=== PATIENT | female | born 1940 | race Caucasian/White ===

== ENCOUNTER → 2019-04-24 12:38 | Outpatient (CLI) | payer MEDICARE, SELFPAY ==
--- NOTE | ~2019-04-24 | XR_ITS ---
XR lumbar spine 2-3V DATE: 04/24/2019 13:29 INDICATION: Low back pain. TECHNIQUE: Standing AP, lateral and flexion and extension lateral and coned lateral lumbosacral views COMPARISON: None FINDINGS: There is dextroscoliosis of measuring 12 degrees from L2 to L4. There is severe degenerative disc disease at L3-4, L4-5 and L5-S1 and moderately prominent degenerati ve disc disease at L1-2 and L2-3. There is diffuse osteopenia. No fracture, spondylolisthesis or bone destruction is evident. The included lower thoracic and lumbar pedicles are intact. No instability is noted on flexion or extension. The sacroiliac joints appear normal. There is extensive calcification of the descending thoracic and abdominal aorta, without evidence of aneurysm. IMPRESSION: Dextroscoliosis Multilevel degenerative disc disease Reviewed, dictated and finalized at location B. GENETICIST
--- NOTE | ~2019-04-24 | XR_ITS ---
EXAMINATION: XR foot RT min 3V EXAM DATE: 04/24/2019 13:29 INDICATION: No known recent injury provided at this time. Pain of the right foot. Toe tingling. TECHNIQUE: Right foot dorsoplantar, lateral and oblique projections obtained and reviewed. There is no prior study for comparison. FINDINGS: Right metatarsal bones unremarkable. 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 Shaft of the fifth proximal phalanx is absent. There is also chronic appearing absence of the s econd proximal phalangeal head. Findings could be sequela from old avascular necrosis. There are no b steff erosions identified. Small amount of dystrophic calcification between the first and second metata rsal heads, as seen on the contralateral side. There is mild first metatarsophalangeal joint primary osteoarthritis. There are no acute fractures or dislocations identified. There is no subcutaneous ga s. The soft tissue is unremarkable. There are no radiopaque foreign bodies. IMPRESSION: Chronic findings as above. Reviewed, dictated and finalized at location A. MA DIRECTOR IMPRESSION: Chronic findings as above.
--- NOTE | ~2019-04-24 | CT_ITS ---
EXAMINATION: CT thoracic spine wo con EXAM DATE: 04/24/2019 13:29 INDICATION: Thoracic pain. TECHNIQUE: Spiral CT thoracic spine wo con was performed without contrast. Axial, coronal and sagit maira images were reviewed. The dose-length product (DLP) for this examination was 550.63 mGy-cm. The exposure was tailored according to patient size (auto mA exposure control), and iterative reconstruc tion (ASIR) was used as additional dose reduction technique. There is no prior study for comparison. FINDINGS: There is minimal thoracolumbar scoliosis. There is mild to moderate mid thoracic, mild lowe r thoracic disc disease. Cervical fusion hardware. The vertebral body heights are aligned. Thoracic c entral canal and neural foramen appear widely patent. There are no acute fractures identified. There are no osteoblastic or osteolytic lesions identified. Mild thoracic facet arthropathy. There are no b steff erosions identified. Paraspinal soft tissue is unremarkable. Mild lumbar dextroscoliosis on the die technician. IMPRESSION: 1. Mild to moderate mid thoracic disc disease. 2. Mild facet arthropathy. 3. No acute findings. Reviewed, dictated and finalized at location A. STERED NURSE RENAL
--- NOTE | ~2019-04-24 | XR_ITS ---
EXAMINATION: XR foot LT min 3V EXAM DATE: 04/24/2019 13:29 INDICATION: Left foot pain. Toe numbness. TECHNIQUE: Left foot dorsoplantar, lateral and oblique projections obtained and reviewed. Correlation is made to contralateral foot same date. FINDINGS: Left metatarsal bones unremarkable. Small amount of dystrophic ossification located betwe en the heads of the first and second metatarsal bones. There is mild first metatarsophalangeal joint primary osteoarthritis. There are no bony erosions identified. There are no acute fractures or dislo cations identified. There is no subcutaneous gas. The soft tissue is unremarkable. There are no r adiopaque foreign bodies. IMPRESSION: Chronic findings as above. Reviewed, dictated and finalized at location A. OMER CARE COORDINATOR IMPRESSION: Chronic findings as above.
== END ==
PROVIDERS: Visit Provider Neurological Surgery
DX: M51.9 Unspecified thoracic, thoracolumbar and lumbosacral intervertebral disc disorder (principal); M19.071 Primary osteoarthritis, right ankle and foot; M51.37 Other intervertebral disc degeneration, lumbosacral region; M41.86 Other forms of scoliosis, lumbar region; M79.671 Pain in right foot
CPT/HCPCS: 72100; 72128; 73630

== ENCOUNTER → 2019-04-25 11:17 | Outpatient (CLI) | payer MEDICARE, SELFPAY ==
--- NOTE | ~2019-04-25 | CT_ITS ---
EXAMINATION: CT lumbar spine wo con DATE: 04/25/2019 11:37 INDICATION: Low back pain. TECHNIQUE: Computed tomography (CT) of the lumbar spine was performed without intravenous contrast. A utomated exposure control and iterative reconstruction technique were employed. The dose-length produ ct was 552.28 mGy-cm. COMPARISON: None FINDINGS: There is 8 degrees dextrocurvature of lumbar spine. There is 2 mm retrolisthesis of L3 on L 4. There are Schmorl's nodes of the inferior endplates of T12 and L1. There is moderately decreased d isc height at L1-L2 and L2-L3 and severely decreased disc height from L3-L4 through L5-S1. The follow ing disc levels are specifically discussed: L1-L2: The disc is bulging. There is mild bilateral facet joint osteoarthritis. There is mild bilater al neural foraminal stenosis. There is mild central canal stenosis. L2-L3: The disc is bulging. There is mild right and severe left facet joint osteoarthritis. There is mild bilateral neural foraminal stenosis. There is mild central canal stenosis. L3-L4: The disc is bulging. There is moderate bilateral facet joint osteoarthritis. There is mild luis ateral neural foraminal stenosis. There is mild central canal stenosis. L4-L5: The disc is bulging. There is severe bilateral facet joint osteoarthritis. There is moderate b ilateral neural foraminal stenosis. There is mild central canal stenosis. L5-S1: The disc is bulging. There is severe bilateral facet joint osteoarthritis. There is mild bilat eral neural foraminal stenosis. There is mild central canal stenosis. IMPRESSION: 1. Severe lumbar spondylosis. Reviewed, dictated and finalized at location A. H PATCHER
== END ==
PROVIDERS: Visit Provider Neurological Surgery
DX: M47.896 Other spondylosis, lumbar region (principal)
CPT/HCPCS: 72131

== ENCOUNTER → 2019-10-09 15:17 | Outpatient (CLI) | payer MEDICARE, SELFPAY ==
--- NOTE | ~2019-10-09 | XR_ITS ---
EXAMINATION: XR chest 2V EXAM DATE: 10/09/2019 15:32 INDICATION: For the breath and cough for 3 weeks. History COPD. TECHNIQUE: Frontal and lateral projections of the chest obtained and reviewed. There is no prior anshu dy for comparison. FINDINGS: There is mild cardiomegaly and pulmonary vascular congestion. There is no focal acute air space disease. There is aortic arteriosclerosis. There are bony degenerative changes. Cervical fus ion hardware. IMPRESSION: Mild cardiomegaly, congestion. Reviewed, dictated and finalized at location A.
== END ==
PROVIDERS: Visit Provider Internal Medicine Pulmonary Disease
DX: R06.02 Shortness of breath (principal); I51.7 Cardiomegaly
CPT/HCPCS: 71046

== ENCOUNTER → 2020-11-16 14:41 | Outpatient (CLI) | payer MEDICARE, SELFPAY ==
--- NOTE | ~2020-11-16 | MR_ITS ---
EXAMINATION: MR lumbar spine wo con DATE: 11/16/2020 16:15 INDICATION: Chronic right-sided low back pain. TECHNIQUE: Magnetic resonance imaging (MRI) of the lumbar spine was performed without intravenous con trast. Sequences included sagittal T2-weighted FSE, sagittal T2-weighted FS FSE, sagittal T1-weighted FSE, and axial T2-weighted FSE. COMPARISON: CT lumbar spine 04/25/2019 FINDINGS: There is 6 degrees dextrocurvature of lumbar spine. Vertebral body heights are normal. Ther e is moderately decreased disc height at T12-L1, L1-L2, and L2-L3 and severely decreased disc height from L3-L4 through L5-S1 with endplate remodeling. The distal spinal cord signal intensity is normal. The conus medullaris is at L1. The following disc levels are specifically discussed: T12:L1: The disc is bulging. There is mild bilateral facet joint osteoarthritis. There is mild bilate ral neural foraminal stenosis. There is mild central canal stenosis. L1-L2: The disc is bulging and has an annular fissure. There is moderate bilateral facet joint osteoa rthritis. There is mild right and moderate left neural foraminal stenosis. There is mild central bina l stenosis. L2-L3: The disc is bulging and has an annular fissure. There is moderate right and severe left facet joint osteoarthritis. There is mild right and moderate left neural foraminal stenosis. There is mild central canal stenosis. L3-L4: The disc is bulging and has an annular fissure. There is moderate bilateral facet joint osteoa rthritis. There is mild right and moderate left neural foraminal stenosis. There is mild central bina l stenosis. L4-L5: The disc is bulging and has an annular fissure. There is severe bilateral facet joint osteoart hritis. There is moderate bilateral neural foraminal stenosis. There is mild central canal stenosis w ith posterior decompression. L5-S1: The disc is bulging and has an annular fissure. There is moderate bilateral facet joint osteoa rthritis. There is mild bilateral neural foraminal stenosis. There is mild central canal stenosis. IMPRESSION: 1. Severe lumbar spondylosis. Reviewed, dictated and finalized at location A.
== END ==
PROVIDERS: PCP Physician Assistant; Visit Provider Physician Assistant
DX: M47.896 Other spondylosis, lumbar region (principal)
CPT/HCPCS: 72148